=== PATIENT | female | born 2000 | race Caucasian/White ===

== ENCOUNTER 2020-10-04 02:36 | Observation (INO) ==
[2020-10-04] MEDS ORDERED: Naloxone 0.4 MG/ML INJ IVP PRN (09:14)
[2020-10-04] MEDS: Ringers Solution, Lactated 1,000 ML IVC SCH ×2 (11:31→20:07)
[2020-10-04] MEDS: Ondansetron 4 MG/2 ML VIAL IVP PRN ×2 (11:32→20:27)
[2020-10-04 15:20] LABS: Amylase 49 Units/L (29-103); Lipase 56 Units/L (11-82)
[2020-10-04] MEDS: Famotidine 20 MG TABLET PO SCH (19:56)
[2020-10-04] MEDS ORDERED: hydrOXYzine pamoate 25 MG CAPSULE PO SCH (21:00)
[2020-10-04 21:22] LABS: Adenovirus Not Detected (Not Detect); Bordetella Pertussis Not Detected (Not Detect); Chlamydophila pneumoniae Not Detected (Not Detect); Coronavirus 229E Not Detected (Not Detect); Coronavirus HKU1 Not Detected (Not Detect); Coronavirus NL63 Not Detected (Not Detect); Coronavirus OC43 Not Detected (Not Detect); Human Metapneumovirus Not Detected (Not Detect); Human Rhinovirus/Enterovirus Not Detected (Not Detect); Influenza A Subtype 2009 H1 Not Detected (Not Detect); Influenza B Not Detected (Not Detect); Mycoplasma pneumoniae Not Detected (Not Detect); Parainfluenza Virus 1 Not Detected (Not Detect); Parainfluenza Virus 2 Not Detected (Not Detect); Parainfluenza Virus 3 Not Detected (Not Detect); Parainfluenza Virus 4 Not Detected (Not Detect); Respiratory Syncytial Virus Not Detected (Not Detect); SARS-CoV-2 Not Detected (Not Detect)
[2020-10-05 04:57] LABS: Basophils % 0.3 %; Eosinophils # 0.1 K/mcL (0.0-0.6); Eosinophils % 0.9 %; Hematocrit 38.1 % (35.3-44.9); Hemoglobin 12.6 g/dL (11.5-15.4); Immature Granulocytes % 0.6 % (0-4); Lymphocytes # 2.5 K/mcL (0.6-4.6); Lymphocytes % 27.9 %; Mean Corpuscular HGB Conc 33.1 g/dL (31.6-35.5); Mean Corpuscular Hemoglobin 26.8 pg (28.0-33.3); Mean Corpuscular Volume 80.9 fL (83.0-100.0); Mean Platelet Volume 10.4 fL (9.4-12.4); Monocytes # 0.7 K/mcL (0.0-1.3); Monocytes % 7.2 %; Neutrophils # 5.7 K/mcL (1.6-8.9); Nucleated Red Blood Cells 0.2 /100 WBC (0); Platelet Count 295 K/mcL (140-400); Red Blood Count 4.71 M/mcL (3.82-4.97); Red Cell Distribution Width 13.1 % (11.5-14.5); Segmented Neutrophils % 63.1 %; White Blood Count 9.1 K/mcL (4.3-11.1)
[2020-10-05 05:05] LABS: Amylase 39 Units/L (29-103); BUN/Creatinine Ratio 7 (6-26); Blood Urea Nitrogen 5 mg/dL (6-20); Calcium 8.6 mg/dL (8.6-10.3); Carbon Dioxide 19 mEq/L (23-29); Chloride 106 mEq/L (98-107); Glucose 70 mg/dL (70-105); Lipase 31 Units/L (11-82); Magnesium 1.9 mg/dL (1.6-2.6); Osmolality,Calculated 280 (280-300); Potassium 4.6 mEq/L (3.5-5.1); Sodium 137 mEq/L (136-145); eGFR For African Americans > 60; eGFR For Non-African Americans > 60
[2020-10-05] MEDS ORDERED: Famotidine 20 MG/2 ML VIAL IVP ONE ×3 (06:00→13:20)
[2020-10-05] MEDS ORDERED: *HR* Enoxaparin 40 MG/0.4 ML SYRINGE SQ SCH (07:00)
[2020-10-05] MEDS ORDERED: *HR* FentaNYL (PF) 100 MCG/2 ML VIAL ONE (07:43)
[2020-10-05] MEDS ORDERED: *HR* Midazolam HCl 2 MG/2 ML VIAL ONE (07:43)
[2020-10-05] MEDS ORDERED: *HR* Propofol 200 MG/20 ML VIAL IVP ONE (07:43)
[2020-10-05] MEDS ORDERED: Lidocaine HCL 4 ML Topical Solution (Laryng-O-Jet Kit Sterile Pak) TP ONE (07:44)
[2020-10-05] MEDS ORDERED: Lidocaine -MPF 2% 2 ML VIAL ONE (07:48)
[2020-10-05] MEDS ORDERED: *HR* Rocuronium Bromide 50 MG/5 ML VIAL ONE (07:48)
[2020-10-05] MEDS ORDERED: Isovue-300 50ML VIAL ONE (08:53)
[2020-10-05] MEDS ORDERED: (Norgestimate-Ethinyl Estradiol [Sprintec 28 Day Tablet]) PO SCH (09:00)
[2020-10-05] MEDS ORDERED: Naloxone 0.4 MG/ML INJ IVP PRN ×3 (09:03→13:20)
[2020-10-05] MEDS ORDERED: *HR* HYDROmorphone (PF) 1 MG/ML SYRINGE IVP PRN ×2 (09:03→13:20)
[2020-10-05] MEDS ORDERED: *HR* FentaNYL (PF) 100 MCG/2 ML VIAL IVP PRN ×2 (09:03→13:20)
[2020-10-05] MEDS ORDERED: Ondansetron 4 MG/2 ML VIAL IVP PRN ×2 (09:03→13:20)
[2020-10-05] MEDS ORDERED: Albuterol 2.5 MG/3 ML NEBULIZER IH PRN ×2 (09:03→13:20)
[2020-10-05] MEDS ORDERED: Nitroglycerin 0.4 MG TAB.SUBL SL PRN ×2 (09:03→13:20)
[2020-10-05] MEDS ORDERED: Famotidine 20 MG/2 ML VIAL ONE (09:05)
[2020-10-05] MEDS ORDERED: Acetaminophen IV 1,000 MG/100 ML BAG IVPB ONE ×2 (09:10)
[2020-10-05] MEDS: Famotidine 20 MG TABLET PO SCH ×2 (09:11→16:26)
[2020-10-05] MEDS ORDERED: Ondansetron 4 MG/2 ML VIAL ONE (09:37)
[2020-10-05] MEDS ORDERED: Ketorolac 30 MG/ML VIAL ONE (09:40)
[2020-10-05] MEDS ORDERED: Sugammadex Sodium 200 MG/2 ML VIAL IV ONE (09:44)
[2020-10-05] MEDS ORDERED: *HR* HYDROMORPHONE 2 MG/ML VIAL ONE (10:16)
[2020-10-05] MEDS ORDERED: Ringers Solution, Lactated 1,000 ML ONE (14:16)
[2020-10-05] MEDS: Ringers Solution, Lactated 1,000 ML IVC SCH ×2 (14:20→15:36)
[2020-10-05] MEDS ORDERED: hydrOXYzine pamoate 25 MG CAPSULE PO SCH (21:00)
[2020-10-06] MEDS: Ringers Solution, Lactated 1,000 ML IVC SCH (04:44)
[2020-10-06 05:48] LABS: Basophils % 0.2 %; Eosinophils % 0.1 %; Hematocrit 35.6 % (35.3-44.9); Hemoglobin 12.1 g/dL (11.5-15.4); Immature Granulocytes % 1.1 % (0-4); Lymphocytes # 1.7 K/mcL (0.6-4.6); Lymphocytes % 16.6 %; Mean Corpuscular Hemoglobin 26.8 pg (28.0-33.3); Mean Corpuscular Volume 78.8 fL (83.0-100.0); Mean Platelet Volume 10.6 fL (9.4-12.4); Monocytes # 0.7 K/mcL (0.0-1.3); Monocytes % 6.4 %; Neutrophils # 7.8 K/mcL (1.6-8.9); Platelet Count 301 K/mcL (140-400); Red Blood Count 4.52 M/mcL (3.82-4.97); Red Cell Distribution Width 13.1 % (11.5-14.5); Segmented Neutrophils % 75.6 %; White Blood Count 10.3 K/mcL (4.3-11.1)
[2020-10-06 05:49] VITALS: BP 112/73
[2020-10-06 06:06] LABS: BUN/Creatinine Ratio 10 (6-26); Blood Urea Nitrogen 7 mg/dL (6-20); Calcium 8.6 mg/dL (8.6-10.3); Carbon Dioxide 21 mEq/L (23-29); Chloride 109 mEq/L (98-107); Glucose 105 mg/dL (70-105); Magnesium 1.9 mg/dL (1.6-2.6); Osmolality,Calculated 286 (280-300); Potassium 4.4 mEq/L (3.5-5.1); Sodium 139 mEq/L (136-145); eGFR For African Americans > 60; eGFR For Non-African Americans > 60
[2020-10-06] MEDS ORDERED: *HR* Enoxaparin 40 MG/0.4 ML SYRINGE SQ SCH (07:00)
[2020-10-06] MEDS: Famotidine 20 MG TABLET PO SCH (08:00)
[2020-10-06] MEDS ORDERED: (Norgestimate-Ethinyl Estradiol [Sprintec 28 Day Tablet]) PO SCH (09:00)
== END 2020-10-06 10:50 | disposition home or self-care (01) ==
LOC: 3ANU → SUATTDRO 08:50
PROVIDERS: ADMIT Student in an Organized Health Care Education/Training Program; ATTEND Pharmacist